=== PATIENT | female | born 1940 | race Caucasian/White ===

== ENCOUNTER → 2017-11-27 | Outpatient (CLI) | payer MEDICARE ==
[~2017-11-27] MED LIST: NAPR220C11 PO; OMEG1CAP57 PO; vitamines PO
--- NOTE | 2017-11-27 18:41 | Diagnostic Imaging Report ---
INDICATION: Routine screening. Comparison is made with prior exam from 12/23/2014 and 12/17/2013. The current study was also evaluated with a Computer Aided Detection (CAD) system. FINDINGS: Scattered parenchymal densities are identified bilaterally. The overall parenchymal pattern appears to be fairly stable. No dominant mass or malignant-appearing microcalcifications are seen. The axillae are unremarkable. IMPRESSION: No mammographic features suspicious for malignancy are identified. ACR BI-RADS Category 1: Negative. Result letter will be mailed to the patient. Note: At least 10% of breast cancer is not imaged by mammography. Dictated by: Dictated on workstation # [id number]
== END ==
LOC: RAD 12:43
DX: Z12.31 Encounter for screening mammogram for malignant neoplasm of breast (principal)
CPT/HCPCS: 77067

== ENCOUNTER → 2018-12-16 | Outpatient (CLI) | payer MEDICARE, OTHER ==
--- NOTE | 2018-12-16 13:39 | Diagnostic Imaging Report ---
INDICATION: Routine screening. COMPARISON: 11/27/2017 and 12/23/2014. TECHNIQUE: 2D and 3D bilateral screening mammography was performed with CAD. FINDINGS: Both breasts remain heterogeneously dense, limiting the sensitivity of mammography. The parenchymal pattern is stable. No dominant mass or malignant appearing microcalcifications are seen. The axillae are unremarkable. An intraparenchymal lymph node in the upper-outer right breast is stable. IMPRESSION: No mammographic features suspicious for malignancy are identified. ACR BI-RADS Category 2: Benign findings. Result letter will be mailed to the patient. Note: At least 10% of breast cancer is not imaged by mammography. Dictated by: Dictated on workstation # [id number]
== END ==
LOC: RAD 10:51
DX: Z12.31 Encounter for screening mammogram for malignant neoplasm of breast (principal)
CPT/HCPCS: 77067